=== PATIENT | male | born 1985 | race Caucasian/White ===

== ENCOUNTER 2017-02-20 21:05 | Emergency (ER) | payer MEDICAID ==
[2017-02-20 21:35] VITALS: BP 146/67
--- NOTE | 2017-02-20 22:02 | EDM.PDOC ---
ED HPI GENERAL MEDICAL PROBLEM - General Chief Complaint: Bite:Animal, Insect Stated Complaint: TICK BITE BULLSEYE Time Seen by Provider: 02/20/17 21:57 Source of Information: Reports: Patient History Limitations: Reports: No Limitations - History of Present Illness INITIAL COMMENTS - FREE TEXT/NARRATIVE: pt arrived with a tick bite on the left calf. He removed the tick about 2 days ago and now it is red and indurated around the site. he has not felt ill. Onset: Gradual Duration: Day(s): Location: Reports: Lower Extremity, Left Associated Symptoms: Reports: No Other Symptoms - Related Data Allergies Allergy/AdvReac Type Severity Reaction Status Date / Time No Known Allergies Allergy Verified 02/20/17 21:51 Home Meds: Home Meds NK [No Known Home Meds] 02/20/17 [History] Past Medical History HEENT History: Reports: Impaired Vision Musculoskeletal History: Reports: Fracture Other Musculoskeletal History: ANKLE - Infectious Disease History Infectious Disease History: Reports: Chicken Pox - Past Surgical History Musculoskeletal Surgical History: Reports: Other (See Below) Other Musculoskeletal Surgeries/Procedures:: ankle surgery Social & Family History - Tobacco Use Smoking Status *Q: Current Every Day Smoker Years of Tobacco use: 10 Packs/Tins Daily: 1 Used Tobacco, but Quit: No Second Hand Smoke Exposure: Yes - Caffeine Use Caffeine Use: Reports: Coffee, Energy Drinks, Soda, Tea - Alcohol Use Days Per Week of Alcohol Use: 1 Number of Drinks Per Day: 2 Total Drinks Per Week: 2 - Recreational Drug Use Recreational Drug Use: No ED ROS GENERAL - Review of Systems Review Of Systems: See Below Constitutional: Reports: No Symptoms HEENT: Reports: No Symptoms Respiratory: Reports: No Symptoms Cardiovascular: Reports: No Symptoms Endocrine: Reports: No Symptoms GI/Abdominal: Reports: No Symptoms : Reports: No Symptoms ED EXAM, ANIMAL BITE - Physical Exam Exam: See Below Text/Narrative:: pt has a tick bite on the left leg. He removed the tick about 2 days ago and he now has a red area around the bite. This does not look like a true bulls eye. . Exam Limited By: No Limitations General Appearance: Alert, Anxious Ears: Normal TMs Nose: Normal Inspection Throat/Mouth: Normal Inspection Extremities: Other (left leg has a tick bite and it is red and indurated around the site. ) Course - Vital Signs Last Recorded V/S: Last Vital Signs Temp 37.0 C 02/20/17 21:57 Pulse 69 02/20/17 21:57 Resp 12 02/20/17 21:57 BP 146/67 H 02/20/17 21:57 Pulse Ox 97 02/20/17 21:57 Departure - Departure Time of Disposition: 22:02 Disposition: Home, Self-Care 01 Clinical Impression: Infected tick bite - Discharge Information Forms: ED Department Discharge Care Plan Goals: moist warm packs, doxycyline 100mg bid for 1wk to 10 days, rtc if not improving. Doxycline causes lite sensity.
== END 2017-02-20 22:19 | disposition home or self-care (01) ==
LOC: JP.ED 21:05
DX: S80.862A Insect bite (nonvenomous), left lower leg, initial encounter (principal); F17.210 Nicotine dependence, cigarettes, uncomplicated; Z98.890 Other specified postprocedural states; W57.XXXA Bitten or stung by nonvenomous insect and other nonvenomous arthropods, initial encounter
CPT/HCPCS: 99282

== ENCOUNTER 2019-02-23 08:33 | Emergency (ER) | payer MEDICAID ==
[2019-02-23 08:54] VITALS: BP 139/72
--- NOTE | 2019-02-23 09:14 | EDM.PDOC ---
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 No significant fevers or chills, intermittent shortness of breath. His girlfriend is a nurse and told him he should be checked. Onset: Gradual (Today is the first day he's had hemoptysis) Associated Symptoms: Reports: Cough, Shortness of Breath. Denies: Chest Pain, Nausea/Vomiting Chest Pain Score (Numeric/FACES): 4 - Related Data Allergies Allergy/AdvReac Type Severity Reaction Status Date / Time No Known Allergies Allergy Verified 02/23/19 08:57 Home Meds: Home Meds NK [No Known Home Meds] 02/20/17 [History] Past Medical History HEENT History: Reports: Impaired Vision Musculoskeletal History: Reports: Fracture Other Musculoskeletal History: ANKLE - Infectious Disease History Infectious Disease History: Reports: Chicken Pox - Past Surgical History Musculoskeletal Surgical History: Reports: Other (See Below) Other Musculoskeletal Surgeries/Procedures:: ankle surgery Social & Family History - Tobacco Use Smoking Status *Q: Current Every Day Smoker Years of Tobacco use: 20 Packs/Tins Daily: 1.5 - Caffeine Use Caffeine Use: Reports: Coffee - Recreational Drug Use Recreational Drug Use: No ED ROS GENERAL - Review of Systems Review Of Systems: See Below Constitutional: Reports: Chills (A few chills this morning, no measurable fever he knows of), Malaise. Denies: Fever HEENT: Denies: Nosebleed, Throat Pain Respiratory: Reports: Shortness of Breath, Cough, Hemoptysis Cardiovascular: Denies: Chest Pain GI/Abdominal: Denies: Abdominal Pain, Nausea, Vomiting Skin: Reports: No Symptoms Neurological: Denies: Headache ED EXAM, GENERAL - Physical Exam Exam: See Below Exam Limited By: No Limitations General Appearance: Alert, No Apparent Distress Throat/Mouth: Normal Inspection Head: Atraumatic Respiratory/Chest: No Respiratory Distress, Lungs Clear Cardiovascular: Regular Rate, Rhythm Neurological: Alert, Oriented Course - Vital Signs Last Recorded V/S: Last Vital Signs Temp 97.4 F 02/23/19 08:56 Pulse 71 02/23/19 08:56 Resp 16 02/23/19 08:56 BP 139/72 02/23/19 08:56 Pulse Ox 100 02/23/19 08:56 - Re-Assessments/Exams Free Text/Narrative Re-Assessment/Exam: 02/23/19 09:13 Patient was sent back for a two-view chest x-ray. 02/23/19 09:43 Two-view chest x-ray is completely clear, he'll be placed on a five-day course of Zithromax to clear any atypical bronchitis and if symptoms persist he will need a CT of the chest or bronchoscopy. He could return anytime if worsening Departure - Departure Time of Disposition: 09:57 Disposition: Home, Self-Care 01 Condition: Good Clinical Impression: Bronchitis, Hemoptysis - Discharge Information Instructions: Acute Bronchitis, Adult, [id number] Referrals: PCP,None [Primary Care Provider] - Forms: ED Department Discharge Care Plan Goals: Take antibiotic as prescribed and recheck in 1-2 weeks if symptoms are persistent. Return sooner if worsening such as fever or increased shortness of breath. Very important that you try to stop smoking in the near future.
--- NOTE | 2019-02-23 09:34 | CRLCR ---
INDICATION: Dyspnea. TECHNIQUE: Two-view chest. FINDINGS: Clear lungs. Normal heart size and pulmonary vascularity. Normal included skeletal thorax. IMPRESSION: Negative two-view chest. Dictated by Marcelino Lam MD @ Feb 23 2019 9:33AM Signed by Dr. Marcelino Lam @ Feb 23 2019 9:34AM
== END 2019-02-23 09:57 | disposition home or self-care (01) ==
LOC: JP.ED 08:33
DX: J40 Bronchitis, not specified as acute or chronic (principal); R04.2 Hemoptysis; F17.210 Nicotine dependence, cigarettes, uncomplicated
CPT/HCPCS: 71046; 99283-25